=== PATIENT | male | born 1980 | race Two or more races ===

== ENCOUNTER 2018-07-30 00:54 | Emergency (ER) | payer SELFPAY ==
[~2018-07-30] VITALS: Ht 180.3 cm; Wt 138.6 kg
[2018-07-30 01:08] VITALS: BP 148/76
[2018-07-30] MEDS ORDERED: KETOROLAC TROMETHAMINE 30 MG/ML VIAL IM ONE (01:15)
== END 2018-07-30 02:01 | disposition home or self-care (01) ==
LOC: EMS 00:56
DX: K02.9 Dental caries, unspecified (principal)
CPT/HCPCS: 96372; 99283; J1885